=== PATIENT | male | born 1975 | race Caucasian/White ===

== ENCOUNTER 2017-08-14 14:59 | Emergency (ER) | payer BC ==
[2017-08-14] MEDS ORDERED: DIPHENHYDRAMINE HCL IV 50 MG/ML VIAL IVP ONE (15:13)
[2017-08-14] MEDS ORDERED: METHYLPREDNISOLONE PF 125MG/VIAL IVP ONE (15:14)
--- NOTE | 2017-08-14 16:44 | Emergency Department Record ---
History of Present Illness - General Chief complaint: Allergic Reaction Stated complaint: ELEVATED HEART RATE,HIVE,DIZZINESS,MAKENNA Time Seen by Provider: 08/14/17 16:15 Source: Patient Mode of Arrival: Ambulatory Limitations: No limitations - History of Present Illness Initial Comments: pt was outdoors seeding when he developed hives and sob. he has never had this happen before. MD Complaint: Allergic reaction Onset/Timin -: Minutes(s) Exposure: Unknown Symptoms: Itching, Dizziness Severity: Severe Treatment Prior to Arrival: None Previous Allergy History: None - Related Data Home Medications Medication Instructions Recorded Confirmed Last Taken Atorvastatin Calcium [Lipitor] 40 mg PO DAILY 08/14/17 08/14/17 Unknown Fluticasone/Salmeterol [Advair 1 puff INH DAILY 08/14/17 08/14/17 Unknown 100-50 Diskus] Previous Rx's Medication Instructions Recorded Epinephrine [Epipen] 0.3 mg IM ASDIR PRN #2 syr 08/14/17 Allergies Allergy/AdvReac Type Severity Reaction Status Date / Time No Known Drug Allergies Allergy Verified 08/14/17 15:08 Travel Screening - Travel/Exposure Within Last 30 Days Have you traveled within the last 30 days?: No Review of Systems Reviewed: No additional complaints except as noted below Constitutional: Reports: As per HPI. Denies: Chills, Fever, Malaise, Night sweats, Weakness, Weight change Eyes: Reports: As per HPI. Denies: Eye discharge, Eye pain, Photophobia, Vision change ENT: Reports: As per HPI. Denies: Congestion, Dental pain, Ear pain, Epistaxis , Hearing loss, Throat pain Respiratory: Reports: As per HPI. Denies: Cough, Dyspnea, Hemoptysis, Stridor, Wheezes Cardiovascular: Reports: As per HPI. Denies: Arrhythmia, Chest pain, Dyspnea on exertion, Edema, Murmurs, Orthopnea, Palpitations, Paroxysmal nocturnal dyspnea, Rheumatic Fever, Syncope Endocrine: Reports: As per HPI. Denies: Fatigue, Heat or cold intolerance, Polydipsia, Polyuria Gastrointestinal: Reports: As per HPI. Denies: Abdominal pain, Constipation, Diarrhea, Hematemesis, Hematochezia, Melena, Nausea, Vomiting Genitourinary: Reports: As per HPI. Denies: Dysuria, Frequency, Hematuria, Incontinence, Retention, Testicular pain, Testicular mass, Urgency Musculoskeletal: Reports: As per HPI. Denies: Arthralgia, Back pain, Gout, Joint swelling, Myalgia, Neck pain Skin: Reports: As per HPI. Denies: Bruising, Change in color, Change in hair/ nails, Lesions, Pruritus, Rash Neurological: Reports: As per HPI. Denies: Abnormal gait, Confusion, Headache, Numbness, Paresthesias, Seizure, Tingling, Tremors, Vertigo, Weakness Psychiatric: Reports: As per HPI. Denies: Anxiety, Auditory hallucinations, Depression, Homicidal thoughts, Suicidal thoughts, Visual hallucinations Hematological/Lymphatic: Reports: As per HPI. Denies: Anemia, Blood Clots, Easy bleeding, Easy bruising, Swollen glands Past Medical History - SOCIAL HISTORY Smoking Status: Never smoker Alcohol Use: Occasional Drug Use: None - RESPIRATORY Hx Respiratory Disorders: Yes Hx Asthma: Yes - CARDIOVASCULAR Hx Cardio Disorders: Yes Comment:: high cholesterol - NEURO Hx Neuro Disorders: No - GI Hx GI Disorders: No - Hx Genitourinary Disorders: No - ENDOCRINE Hx Endocrine Disorders: No - MUSCULOSKELETAL Hx Musculoskeletal Disorders: No - PSYCH Hx Psych Problems: No - HEMATOLOGY/ONCOLOGY Hx Hematology/Oncology Disorders: No Family Medical History Any Significant Family History?: No Physical Exam - General General Appearance: Alert, Oriented x3, Cooperative, Mild distress - Head Head exam: Normal inspection - Eye Eye exam: Normal appearance, PERRL, EOMI Pupils: Normal accommodation - ENT ENT exam: Normal exam, Mucous membranes moist, Normal external ear exam, Normal orophraynx Ear exam: Normal external inspection. negative: External canal tenderness Nasal Exam: Normal inspection. negative: Discharge, Sinus tenderness Mouth exam: Normal external inspection, Tongue normal Teeth exam: Normal inspection. negative: Dental caries Throat exam: Normal inspection. negative: Tonsillar erythema, Tonsillar exudate - Neck Neck exam: Normal inspection, Full ROM. negative: Tenderness - Respiratory Respiratory exam: Normal lung sounds bilaterally. negative: Respiratory distress - Cardiovascular Cardiovascular Exam: Regular rate, Normal rhythm, Normal heart sounds - GI/Abdominal GI/Abdominal exam: Soft, Normal bowel sounds. negative: Tenderness - Rectal Rectal exam: Deferred - exam: Deferred - Extremities Extremities exam: Normal inspection, Full ROM, Normal capillary refill. negative: Tenderness - Back Back exam: Reports: Normal inspection, Full ROM. Denies: Muscle spasm, Rash noted, Tenderness - Neurological Neurological exam: Alert, CN II-XII intact, Normal gait, Oriented X3 - Psychiatric Psychiatric exam: Normal affect, Normal mood - Skin Skin exam: Dry, Intact, Normal color, Urticaria, Warm Description of rash: Urticarial Course Vital Signs 08/14/17 08/14/17 15:05 16:12 Temperature 97.4 F L Pulse Rate 93 H Pulse Rate [ 80 Pulse Ox Probe] Respiratory 18 20 Rate Blood Pressure 123/82 Blood Pressure 109/77 [Right Arm] Pulse Ox 97 98 - Reevaluation(s) Reevaluation #1: 08/14/17 17:41 pt feels much better Disposition Disposition: Discharge Clinical Impression: Urticaria Allergic reaction Qualifiers: Encounter type: initial encounter Qualified Code(s): T78.40XA - Allergy, unspecified, initial encounter Disposition: Home, Self-Care Condition: (1) Good Instructions: Urticaria (ED), General Allergic Reaction (ED) Additional Instructions: follow up with family doctor. return sooner if worse. benadryl every 6 hours as needed Prescriptions: Epinephrine [Epipen] 0.3 mg IM ASDIR PRN #2 syr PRN Reason: Anaphylaxis Forms: Patient Portal Access Quality - Quality Measures Quality Measures: N/A - Blood Pressure Screening Does Patient Have Any of the Following: No Blood Pressure Classification: Pre-Hypertensive BP Reading Systolic Measurement: 123 Diastolic Measurement: 82 Screening for High Blood Pressure: < Pre-Hypertensive BP, F/U Documented > [ [id number]] Pre-Hypertensive Follow-up Interventions: Follow-up with rescreen every year.
== END 2017-08-14 18:05 | disposition home or self-care (01) ==
LOC: ER 14:59
DX: L50.0 Allergic urticaria (principal); R00.0 Tachycardia, unspecified; R42 Dizziness and giddiness; R06.02 Shortness of breath
CPT/HCPCS: 96374; 96375; 99284; J1200; J2930